=== PATIENT | female | born 1985 | race Caucasian/White ===

== ENCOUNTER 2016-11-11 03:32 | Emergency (ER) | payer SELFPAY ==
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
[2016-11-11] MEDS ORDERED: Sodium Chloride 0.9% 1,000 ML IV ONE (03:55)
[2016-11-11 05:41] VITALS: BP 105/54
--- NOTE | 2016-11-13 10:25 | CT ---
EXAM DATE: 11/11/16 PATIENT'S AGE: 31 Patient: ABHISHEK MEJIAS Facility: [place], [place] Site . Site : 1985 Study: CT Head [id number]/8/2017 4:29:24 AM Ordering Physician: Getachew Brown Final Report: INDICATION: Head trauma TECHNIQUE: CT head without contrast. COMPARISON: None FINDINGS: CSF spaces: Within normal limits for age. Brain parenchyma: The lombardo-white differentiation is normal. No sign of mass, hemorrhage, or midline shift. Skull base and calvarium: The visualized paranasal sinuses and mastoid air cells demonstrate no acute or significant findings. The visualized orbits are grossly unremarkable. No skull fractures. There is a minimally displaced left zygoma fracture. IMPRESSION: No intracranial hemorrhage. Minimally displaced left zygoma fracture. Dictated by Sonia Prater MD @ Nov 11 2016 5:04AM (Electronic Signature) Report Signed by Proxy and Original Signed Document filed in the Medical Record. [facility]
--- NOTE | 2016-11-13 10:26 | CT ---
EXAM DATE: 11/11/16 PATIENT'S AGE: 31 Patient: ABHISHEK MEJIAS Facility: [place], [place] Site . Site : 1985 Study: CT Facial [id number]/8/2017 4:29:51 AM Ordering Physician: Getachew Brown Final Report: INDICATION: Head trauma TECHNIQUE: CT maxillofacial without contrast. COMPARISON: None FINDINGS: Facial bones: There is a minimally displaced left zygoma fracture. The remainder of the osseous structures are intact. Orbits and globes: Unremarkable. Sinuses: No acute or significant findings. Soft tissues: Mild soft tissue swelling overlying the left zygoma. . IMPRESSION: Minimally displaced left zygoma fracture. Dictated by Sonia Prater MD @ Nov 11 2016 5:07AM (Electronic Signature) Report Signed by Proxy and Original Signed Document filed in the Medical Record. [facility]
== END 2016-11-11 05:38 | disposition home or self-care (01) ==
LOC: MW.ED 03:32
DX: S00.83XA Contusion of other part of head, initial encounter (principal); Z79.899 Other long term (current) drug therapy; T74.21XA Adult sexual abuse, confirmed, initial encounter
CPT/HCPCS: 70450; 70450-26; 70486; 70486-26; 99283; 99283-25

== ENCOUNTER 2017-11-08 07:22 | Inpatient (IN) | payer MEDICAID ==
[2017-11-08] MEDS: Lactated Ringers 1,000 ML IV SCH ×3 (07:45→11:27)
[2017-11-08] MEDS ORDERED: Terbutaline 1 MG/ML SDV SUBCUT PRN (07:57)
[2017-11-08] MEDS ORDERED: Water For Irrigation,Sterile 1,000 ML Container IRR PRN (07:59)
[2017-11-08] MEDS ORDERED: Carboprost Tromethamine 250 MCG/1 ML Amp IM PRN (07:59)
[2017-11-08] MEDS ORDERED: Nalbuphine 10 MG/1 ML Vial IVPUSH PRN (07:59)
[2017-11-08] MEDS ORDERED: Sodium Chloride 0.9% 2.5 ML Syringe FLUSH PRN (07:59)
[2017-11-08] MEDS ORDERED: Butorphanol 1 MG/ML SDV IVPUSH PRN (07:59)
[2017-11-08] MEDS ORDERED: Lidocaine 1% 50 ML MDV INJECT PRN (07:59)
[2017-11-08] MEDS ORDERED: Sodium Chloride 0.9% 10 ML Syringe FLUSH PRN (07:59)
[2017-11-08] MEDS ORDERED: Methylergonovine 0.2 MG/1 ML Amp IM PRN (07:59)
[2017-11-08] MEDS ORDERED: Tranexamic Acid 1,000 MG in Sodium Chloride 0.9% 100 ML IV PRN (07:59)
[2017-11-08] MEDS ORDERED: Misoprostol 200 MCG Tab PO PRN (07:59)
[2017-11-08] MEDS ORDERED: Oxytocin/0.9 % Sodium Chloride 30 UNIT/500 ML BAG IV SCH ×2 (08:00)
[2017-11-08] MEDS ORDERED: fentaNYL 100 MCG/2 ML SDV ONE (09:23)
[2017-11-08] MEDS ORDERED: Ropivacaine 0.2% 2 MG/ML 20 ML SDV ONE (09:23)
--- NOTE | 2017-11-08 10:09 | PCM.PREANE ---
Preanesthetic Assessment - Procedure Proposed Procedure: labor epidural - Anesthesia/Transfusion/Family Hx Anesthesia History: Prior Anesthesia Without Reaction (wisdom teeth, epidural x2 ) Other Type of Anesthesia Reaction Comment: high epidural level with previous epidural Family History of Anesthesia Reaction: No Transfusion History: No Prior Transfusion(s) - Review of Systems General: No Symptoms Pulmonary: Other (allergy symptoms, stuffy nose, frequent "bloody" nose) Cardiovascular: No Symptoms Gastrointestinal: No Symptoms Neurological: No Symptoms Other: Reports: Anxiety - Physical Assessment NPO Status Date: 11/08/17 NPO Status Time: 10:08 Height: 1.73 m Weight: 71.668 kg ASA Class: 2 Mental Status: Alert & Oriented x3 Airway Class: Mallampati = 1 Dentition: Reports: Normal Dentition Thyro-Mental Finger Breadths: 3 Mouth Opening Finger Breadths: 3 ROM/Head Extension: Full Lungs: Clear to Auscultation, Normal Respiratory Effort Cardiovascular: Regular Rate, Regular Rhythm - Lab Values: Laboratory Last Values WBC 9.22 K/uL (4.0-11.0) 11/08/17 07:52 RBC 4.66 M/uL (4.30-5.90) 11/08/17 07:52 Hgb 13.7 g/dL (12.0-16.0) 11/08/17 07:52 Hct 40.4 % (36.0-46.0) 11/08/17 07:52 MCV 86.7 fL (80.0-98.0) 04 07:52 MCH 29.4 pg (27.0-32.0) 11/08/17 07:52 MCHC 33.9 g/dL (31.0-37.0) 11/08/17 07:52 RDW Std Deviation 45.3 fl (28.0-62.0) 11/08/17 07:52 RDW Coeff of Armando 15 % (11.0-15.0) 11/08/17 07:52 Plt Count 142 K/uL (150-400) L 11/08/17 07:52 MPV 11.40 fL (7.40-12.00) 11/08/17 07:52 Nucleated RBC % 0.0 /100WBC 11/08/17 07:52 Nucleated RBCs # 0 K/uL 11/08/17 07:52 Blood Type O POSITIVE 04/05/18 07:52 Antibody Screen NEGATIVE 11/08/17 07:52 - Allergies Allergies/Adverse Reactions: Allergies Allergy/AdvReac Type Severity Reaction Status Date / Time seasonal Allergy Other Uncoded 11/08/17 09:56 - Blood Blood Available: Yes Product(s) Available: PRBC - Acknowledgements Anesthesia Type Planned: Epidural Pt an Appropriate Candidate for the Planned Anesthesia: Yes Alternatives and Risks of Anesthesia Discussed w Pt/Guardian: Yes Pt/Guardian Understands and Agrees with Anesthesia Plan: Yes PreAnesthesia Questionnaire [employer] History: Reports: , Other (See Below) Other OB/BYN History: breast augmentation 2012 Neurological History: Reports: Migraines Psychiatric History: Reports: Anxiety, Depression - Past Surgical History HEENT Surgical History: Reports: Other (See Below) Other HEENT Surgeries/Procedures: wisdom teeth removal, mole removal L cheek 3 mos ago - SUBSTANCE USE Smoking Status *Q: Never Smoker Second Hand Smoke Exposure: No Days Per Week of Alcohol Use: 0 Recreational Drug Use History: No - HOME MEDS Home Medications: Home Meds . [No Known Home Meds] 08/22/17 [History] - CURRENT (IN HOUSE) MEDS Current Meds: Current Medications Butorphanol Tartrate (Stadol) 1 mg IVPUSH Q1H PRN PRN Reason: Pain Carboprost Tromethamine (Hemabate Ds) 250 mcg IM ASDIRECTED PRN PRN Reason: Post Hemorrhage Oxytocin/Sodium Chloride (Oxytocin 30 Unit/500 Ml-Ns) 30 unit in 500 mls @ 2 mls/hr IV TITRATE ETTA; Protocol Last Titration: 11/08/17 09:05 Dose: 4 munits/min, 4 mls/hr Lactated Ringer's (Ringers, Lactated) 1,000 mls @ 150 mls/hr IV ASDIRECTED ETTA Last Admin: 11/08/17 09:16 Dose: 999 mls/hr Oxytocin/Sodium Chloride (Oxytocin 30 Unit/500 Ml-Ns) 30 unit in 500 mls @ 500 mls/hr IV TITRATE ETTA Tranexamic Acid 1,000 mg/ (Sodium Chloride) 110 mls @ 660 mls/hr IV ONETIME PRN PRN Reason: Bleeding Lidocaine HCl (Xylocaine 1%) 50 ml INJECT .ONCE PRN PRN Reason: Laceration repair Methylergonovine Maleate (Methergine) 0.2 mg IM ASDIRECTED PRN PRN Reason: Post Hemorrhage Misoprostol (Cytotec) 200 mcg PO .ONCE PRN PRN Reason: Post Hemorrhage Nalbuphine HCl (Nubain) 10 mg IVPUSH Q1H PRN PRN Reason: Pain (severe 7-10) Sodium Chloride (Saline Flush) 10 ml FLUSH ASDIRECTED PRN PRN Reason: Keep Vein Open Sodium Chloride (Saline Flush) 2.5 ml FLUSH ASDIRECTED PRN PRN Reason: Keep Vein Open Sterile Water (Sterile Water For Irrigation) 1,000 ml IRR ASDIRECTED PRN PRN Reason: delivery Terbutaline Sulfate (Brethine) 0.25 mg SUBCUT ASDIRECTED PRN PRN Reason: Tacysystole Discontinued Medications Fentanyl (Sublimaze) Confirm Administered Dose 100 mcg .ROUTE .STK-MED ONE Stop: 11/08/17 09:24 Fentanyl/Bupivacaine HCl (Gorhttwy-Cyurs-Ec 2 Mcg/Ml-0.125%) Confirm Administered Dose 100 mls @ as directed EP .STK-MED ONE Stop: 11/08/17 09:24 Ropivacaine (Naropin 0.2%) Confirm Administered Dose 20 ml .ROUTE .STK-MED ONE Stop: 11/08/17 09:24
--- NOTE | 2017-11-08 10:16 | PCM.PRNOTE ---
- Free Text/Narrative Note: asked to place epidural for labor pain. discussed epidural placement and risks with patient including bleeding, infection, nerve pain, nerve damage and unsuccessful epidural placement. Patient agrees to proceed. sitting up, sterile betadine prep/drape. 1% lidocaine SQ at L4. OS initially found. needle repositioned. #17 touhy advanced with NIKO saline. No heme. no paresthesia. aspiration of fluid shows lightly heme tinged, flushed with normal saline, aspirate now clear. catheter easily placed to 12 cm at skin, approximately 6 cm into space. test dose 3 ml lidocaine with epinepherine 1:200,000. negative reaction. bolus dose of 7 ml 0.2% ropivicaine and fentanyl 100 mcg over 10 min. pain now 2/10 from 6/10 PCEA started at 8ml/hr of 0.125% bupivicaine with fentanyl 100 mcg with bolus option of 5 ml/10 min. hourly rate 32 ml. no complications noted
[2017-11-08] MEDS ORDERED: oxyCODONE 5 MG Tab PO PRN (16:42)
[2017-11-08] MEDS ORDERED: Bisacodyl 10 MG Supp RECTAL PRN (16:42)
[2017-11-08] MEDS ORDERED: Docusate Sodium 100 MG Cap PO PRN (16:42)
[2017-11-08] MEDS ORDERED: Ibuprofen 400 MG Tab PO PRN (16:42)
[2017-11-08] MEDS ORDERED: Benzocaine/Menthol 20%-0.5% Spray 78 GM Cannister TOP PRN (16:42)
[2017-11-08] MEDS ORDERED: Witch Hazel Medicated Pads 40/Jar TOP PRN (16:42)
[2017-11-08] MEDS ORDERED: Acetaminophen 500 MG Tab PO PRN (16:42)
[2017-11-08] MEDS ORDERED: Lanolin 100% Cream 7 GM Tube TOP PRN (16:42)
--- NOTE | 2017-11-08 18:54 | OR ---
SURGEON: Tati Mujica M.D. DATE OF PROCEDURE: 11/08/2017 PREOPERATIVE DIAGNOSES: 1. 39 and 5-week intrauterine . 2. Fairly active induction of labor. POSTOPERATIVE DIAGNOSES: 1. 39 and 5-week intrauterine . 2. Fairly active induction of labor. PROCEDURE PERFORMED: Spontaneous vaginal delivery, intact perineum. ESTIMATED BLOOD LOSS: 350 mL. FINDINGS: Term male, score 9 at 1 minute, 9 at 5 minute. Weight of 4000 g. Spontaneous delivery, intact placenta, 3-vessel cord. DISPOSITION: to nursery, mom in LDRP, stable. PROCEDURE IN DETAIL: Patria is a 32-year-old G3, P2-0-0-2, at 39 and 5 weeks' gestational age, who presents this morning for scheduled elective induction of labor. She is group B beta strep negative. On initial exam, she was found to be 3 cm, 70% effaced, -2 station. She was admitted, routine labs were drawn, IV hydration was initiated. She was initiated on Pitocin induction. Given the fact that she tended to labor fairly rapidly, she elected to undergo a regional anesthesia from epidural first. When she became comfortable with this, underwent amniotomy. Clear fluid was returned. At that time, the patient was found to be 4 cm, 70% effaced, -2 station. She began to progress more rapidly thereafter and shortly after 3 p.m., was found to be complete 100% effaced, +3 station. I was called for delivery. Upon my arrival, the patient was placed in modified dorsal supine position, prepped and draped in the usual aseptic manner. With the next contraction, I was able to push to deliver 's head atraumatically, spontaneously, followed by anterior shoulder, posterior, and remaining body without difficulty. The infant's oropharynx and nares were bulb suctioned. Cord was clamped x2 and cut. was handed off to his mother, attending nursing staff at her side. Cord arterial, cord venous, cord blood samples were obtained. Light suprapubic pressure was applied. The placenta was delivered spontaneously intact. Vigorous fundal uterine massage was then applied while 30 units of Pitocin delivered in 500 mL IV fluid. Upon inspection of cervix, vaginal side, perineum, this was found to be an intact uterus, remained firm. Hemostasis evident. Sponge count is correct. The patient remained in LDRP. in Nursery. YOSSI / ARNIE /[id number]
[2017-11-08] MEDS: Ibuprofen 800 MG Tab PO PRN (20:10)
[2017-11-08] MEDS: Acetaminophen 500 MG Tab PO PRN (23:06)
[2017-11-09] MEDS: Ibuprofen 800 MG Tab PO PRN ×3 (02:25→17:50)
[2017-11-09] MEDS: Acetaminophen 500 MG Tab PO PRN ×2 (07:21→12:32)
--- NOTE | 2017-11-09 07:41 | PCM48HPAN ---
Post Anesthesia Note - EVALUATION WITHIN 48HRS OF ANESTHETIC Vital Signs in Normal Range: Yes Patient Participated in Evaluation: Yes Respiratory Function Stable: Yes Airway Patent: Yes Cardiovascular Function Stable: Yes Hydration Status Stable: Yes Pain Control Satisfactory: Yes Nausea and Vomiting Control Satisfactory: Yes Mental Status Recovered: Yes Resp Rate: 16
--- NOTE | 2017-11-09 08:10 | PCM.PNPP ---
<Mariam Nuñez - Last Filed: 11/09/17 08:08> - General Info Date of Service: 11/09/17 Functional Status: Reports: Pain Controlled, Tolerating Diet, Ambulating, Urinating - Review of Systems General: Denies: Fever, Weakness, Fatigue Pulmonary: Denies: Shortness of Breath, Pleuritic Chest Pain, Cough Cardiovascular: Denies: Chest Pain, Palpitations, Dyspnea on Exertion Gastrointestinal: Denies: Abdominal Pain Genitourinary: Denies: Dysuria Psychiatric: Reports: No Symptoms - General Info Date of Service: 11/09/17 - Patient Data Vital Signs - Most Recent: Last Vital Signs Temp 36.0 C 11/09/17 06:00 Pulse 54 L 11/09/17 06:00 Resp 16 11/09/17 07:41 BP 102/63 11/09/17 06:00 Pulse Ox 97 11/09/17 06:00 Weight - Most Recent: 71.668 kg I&O - Last 24 Hours: Intake & Output 11/08/17 11/09/17 11/09/17 22:59 06:59 14:59 Intake Total 1000 Balance 1000 Lab Results - Last 24 Hours: Laboratory Results - last 24 hr 11/08/17 11/08/17 11/09/17 Range/Units 07:52 07:52 05:25 WBC 9.22 (4.0-11.0) K/uL RBC 4.66 (4.30-5.90) M/uL Hgb 13.7 12.3 (12.0-16.0) g/dL Hct 40.4 36.8 (36.0-46.0) % MCV 86.7 (80.0-98.0) fL MCH 29.4 (27.0-32.0) pg MCHC 33.9 (31.0-37.0) g/dL RDW Std Deviation 45.3 (28.0-62.0) fl RDW Coeff of Armando 15 (11.0-15.0) % Plt Count 142 L (150-400) K/uL MPV 11.40 (7.40-12.00) fL Nucleated RBC % 0.0 /100WBC Nucleated RBCs # 0 K/uL Blood Type O POSITIVE Antibody Screen NEGATIVE Med Orders - Current: Current Medications Acetaminophen (Tylenol Extra Strength) 500 mg PO Q4H PRN PRN Reason: Pain Acetaminophen (Tylenol Extra Strength) 1,000 mg PO Q4H PRN PRN Reason: Pain Last Admin: 11/09/17 07:21 Dose: 1,000 mg Benzocaine/Menthol (Dermoplast Pain Relief 20%-0.5% Cutler) 78 gm TOP ASDIRECTED PRN PRN Reason: Perineal Comfort Measure Last Admin: 11/08/17 20:10 Dose: 1 can Bisacodyl (Dulcolax) 10 mg RECTAL .ONCE PRN PRN Reason: Constipation Carboprost Tromethamine (Hemabate Ds) 250 mcg IM ASDIRECTED PRN PRN Reason: Post Hemorrhage Docusate Sodium (Colace) 100 mg PO BID PRN PRN Reason: Constipation Emollient Ointment (Lansinoh Hpa) 0 gm TOP ASDIRECTED PRN PRN Reason: Sore Nipples Oxytocin/Sodium Chloride (Oxytocin 30 Unit/500 Ml-Ns) 30 unit in 500 mls @ 2 mls/hr IV TITRATE ETTA; Protocol Last Titration: 11/08/17 15:31 Dose: 500 mls/hr Lactated Ringer's (Ringers, Lactated) 1,000 mls @ 150 mls/hr IV ASDIRECTED ETTA Last Admin: 11/08/17 11:27 Dose: 999 mls/hr Oxytocin/Sodium Chloride (Oxytocin 30 Unit/500 Ml-Ns) 30 unit in 500 mls @ 500 mls/hr IV TITRATE ETTA Tranexamic Acid 1,000 mg/ (Sodium Chloride) 110 mls @ 660 mls/hr IV ONETIME PRN PRN Reason: Bleeding Ibuprofen (Motrin) 400 mg PO Q4H PRN PRN Reason: Pain Ibuprofen (Motrin) 800 mg PO Q6H PRN PRN Reason: Pain Last Admin: 11/09/17 02:25 Dose: 800 mg Lidocaine HCl (Xylocaine 1%) 50 ml INJECT .ONCE PRN PRN Reason: Laceration repair Methylergonovine Maleate (Methergine) 0.2 mg IM ASDIRECTED PRN PRN Reason: Post Hemorrhage Oxycodone HCl (Oxycodone) 5 mg PO Q2H PRN PRN Reason: Pain Sodium Chloride (Saline Flush) 10 ml FLUSH ASDIRECTED PRN PRN Reason: Keep Vein Open Sodium Chloride (Saline Flush) 2.5 ml FLUSH ASDIRECTED PRN PRN Reason: Keep Vein Open Witch Martina (Tucks) 1 pad TOP ASDIRECTED PRN PRN Reason: comfort care Discontinued Medications Butorphanol Tartrate (Stadol) 1 mg IVPUSH Q1H PRN PRN Reason: Pain Fentanyl (Sublimaze) Confirm Administered Dose 100 mcg .ROUTE .STK-MED ONE Stop: 11/08/17 09:24 Last Admin: 11/08/17 21:25 Dose: Not Given Fentanyl/Bupivacaine HCl (Uzhgkvop-Dhzkl-Ke 2 Mcg/Ml-0.125%) Confirm Administered Dose 100 mls @ as directed EP .PolyMedix-MED ONE Stop: 11/08/17 09:24 Last Admin: 11/08/17 21:25 Dose: Not Given Misoprostol (Cytotec) 200 mcg PO .ONCE PRN PRN Reason: Post Hemorrhage Nalbuphine HCl (Nubain) 10 mg IVPUSH Q1H PRN PRN Reason: Pain (severe 7-10) Ropivacaine (Naropin 0.2%) Confirm Administered Dose 20 ml .ROUTE .PolyMedix-MED ONE Stop: 11/08/17 09:24 Last Admin: 11/08/17 21:25 Dose: Not Given Sterile Water (Sterile Water For Irrigation) 1,000 ml IRR ASDIRECTED PRN PRN Reason: delivery Last Admin: 11/08/17 15:25 Dose: 1,000 ml Terbutaline Sulfate (Brethine) 0.25 mg SUBCUT ASDIRECTED PRN PRN Reason: Tacysystole - Infant Interaction Disposition, : in Room with Family Interaction: Holding Infant Feeding: Breastfed Infant; Nursed Well Support Person: Mother, Significant Other - Recovery Exam Fundal Tone: Firm Fundal Level: At Umbilicus Fundal Placement: Midline Lochia Amount: Scant Lochia Color: Rubra/Red Perineum Description: Intact, Minimal Bruising/Swelling Episiotomy/Laceration: None Bladder Status: Voiding - Exam General: Alert, Oriented Neck: Supple Lungs: Clear to Auscultation, Normal Respiratory Effort Cardiovascular: Regular Rate, Regular Rhythm GI/Abdominal Exam: Normal Bowel Sounds, Soft, No Distention Extremities: Normal Inspection, Pedal Edema (trace) Skin: Warm, Dry, Intact Psy/Mental Status: Alert - Problem List & Annotations (1) Vaginal delivery SNOMED Code(s): 210972632 Code(s): O80 - ENCOUNTER FOR FULL-TERM UNCOMPLICATED DELIVERY Status: Acute Current Visit: Yes - Problem List Review Problem List Initiated/Reviewed/Updated: Yes - Assessment Assessment:: PPD #1 s/p . Minimal pain and lochia. Breast feeding well. Discharge home today. - Plan Plan:: Discharge instructions reviewed. Nothing in the vagina for 6 weeks. Continue PNV while breast feeding. Can use OTC ibuprofen/tylenol as needed for pain. Instructed patient to call if she develops fever greater than 101 or bleeding through a large pad an hour. F/U with [facility] in 6 weeks. <Tati Mujica - Last Filed: 11/09/17 08:43> - Patient Data Vital Signs - Most Recent: Last Vital Signs Temp 36.0 C 11/09/17 06:00 Pulse 54 L 11/09/17 06:00 Resp 16 11/09/17 07:41 BP 102/63 11/09/17 06:00 Pulse Ox 97 11/09/17 06:00 I&O - Last 24 Hours: Intake & Output 11/08/17 11/09/17 11/09/17 22:59 06:59 14:59 Intake Total 1000 Balance 1000 Lab Results - Last 24 Hours: Laboratory Results - last 24 hr 11/08/17 11/09/17 Range/Units 07:52 05:25 Hgb 12.3 (12.0-16.0) g/dL Hct 36.8 (36.0-46.0) % Blood Type O POSITIVE Antibody Screen NEGATIVE Med Orders - Current: Current Medications Acetaminophen (Tylenol Extra Strength) 500 mg PO Q4H PRN PRN Reason: Pain Acetaminophen (Tylenol Extra Strength) 1,000 mg PO Q4H PRN PRN Reason: Pain Last Admin: 11/09/17 07:21 Dose: 1,000 mg Benzocaine/Menthol (Dermoplast Pain Relief 20%-0.5% Cutler) 78 gm TOP ASDIRECTED PRN PRN Reason: Perineal Comfort Measure Last Admin: 11/08/17 20:10 Dose: 1 can Bisacodyl (Dulcolax) 10 mg RECTAL .ONCE PRN PRN Reason: Constipation Carboprost Tromethamine (Hemabate Ds) 250 mcg IM ASDIRECTED PRN PRN Reason: Post Hemorrhage Docusate Sodium (Colace) 100 mg PO BID PRN PRN Reason: Constipation Emollient Ointment (Lansinoh Hpa) 0 gm TOP ASDIRECTED PRN PRN Reason: Sore Nipples Oxytocin/Sodium Chloride (Oxytocin 30 Unit/500 Ml-Ns) 30 unit in 500 mls @ 2 mls/hr IV TITRATE ETTA; Protocol Last Titration: 11/08/17 15:31 Dose: 500 mls/hr Lactated Ringer's (Ringers, Lactated) 1,000 mls @ 150 mls/hr IV ASDIRECTED ETTA Last Admin: 11/08/17 11:27 Dose: 999 mls/hr Oxytocin/Sodium Chloride (Oxytocin 30 Unit/500 Ml-Ns) 30 unit in 500 mls @ 500 mls/hr IV TITRATE ETTA Tranexamic Acid 1,000 mg/ (Sodium Chloride) 110 mls @ 660 mls/hr IV ONETIME PRN PRN Reason: Bleeding Ibuprofen (Motrin) 400 mg PO Q4H PRN PRN Reason: Pain Ibuprofen (Motrin) 800 mg PO Q6H PRN PRN Reason: Pain Last Admin: 11/09/17 08:32 Dose: 800 mg Lidocaine HCl (Xylocaine 1%) 50 ml INJECT .ONCE PRN PRN Reason: Laceration repair Methylergonovine Maleate (Methergine) 0.2 mg IM ASDIRECTED PRN PRN Reason: Post Hemorrhage Oxycodone HCl (Oxycodone) 5 mg PO Q2H PRN PRN Reason: Pain Sodium Chloride (Saline Flush) 10 ml FLUSH ASDIRECTED PRN PRN Reason: Keep Vein Open Sodium Chloride (Saline Flush) 2.5 ml FLUSH ASDIRECTED PRN PRN Reason: Keep Vein Open Witch Martina (Tucks) 1 pad TOP ASDIRECTED PRN PRN Reason: comfort care Discontinued Medications Butorphanol Tartrate (Stadol) 1 mg IVPUSH Q1H PRN PRN Reason: Pain Fentanyl (Sublimaze) Confirm Administered Dose 100 mcg .ROUTE .K-MED ONE Stop: 11/08/17 09:24 Last Admin: 11/08/17 21:25 Dose: Not Given Fentanyl/Bupivacaine HCl (Sqmxqdit-Bmami-Sy 2 Mcg/Ml-0.125%) Confirm Administered Dose 100 mls @ as directed EP .STK-MED ONE Stop: 11/08/17 09:24 Last Admin: 11/08/17 21:25 Dose: Not Given Misoprostol (Cytotec) 200 mcg PO .ONCE PRN PRN Reason: Post Hemorrhage Nalbuphine HCl (Nubain) 10 mg IVPUSH Q1H PRN PRN Reason: Pain (severe 7-10) Ropivacaine (Naropin 0.2%) Confirm Administered Dose 20 ml .ROUTE .STK-MED ONE Stop: 11/08/17 09:24 Last Admin: 11/08/17 21:25 Dose: Not Given Sterile Water (Sterile Water For Irrigation) 1,000 ml IRR ASDIRECTED PRN PRN Reason: delivery Last Admin: 11/08/17 15:25 Dose: 1,000 ml Terbutaline Sulfate (Brethine) 0.25 mg SUBCUT ASDIRECTED PRN PRN Reason: Tacysystole - My Orders Last 24 Hours: My Active Orders 11/08/17 07:57 Bedrest Bathroom Privileges [RC] ASDIRECTED Communication Order [RC] ASDIRECTED Communication Order [RC] ASDIRECTED Communication Order [RC] ASDIRECTED Notify Provider [RC] PRN Notify Provider [RC] PRN Notify Provider [RC] STAT Oxygen Therapy [RC] ASDIRECTED Vital Signs [RC] PER UNIT ROUTINE 11/08/17 07:59 Patient Status [ADT] Routine Heart Tones [RC] CONTINUOUS Non Stress Test [RC] PER UNIT ROUTINE Notify Provider [RC] PRN Vaginal Exam [RC] PRN Vital Signs [RC] PER UNIT ROUTINE Carboprost Tromethamine [Hemabate DS] 250 mcg IM ASDIRECTED PRN Lidocaine 1% [Xylocaine 1%] 50 ml INJECT .ONCE PRN Methylergonovine [Methergine] 0.2 mg IM ASDIRECTED PRN Sodium Chloride 0.9% [Saline Flush] 10 ml FLUSH ASDIRECTED PRN Sodium Chloride 0.9% [Saline Flush] 2.5 ml FLUSH ASDIRECTED PRN Tranexamic Acid [Cyklokapron] 1,000 mg Sodium Chloride 0.9% [Normal Saline] 100 ml IV ONETIME Peripheral IV Insertion Adult [OM.PC] Routine Resuscitation Status Routine 11/08/17 08:00 Lactated Ringers [Ringers, Lactated] 1,000 ml IV ASDIRECTED Oxytocin/0.9 % Sodium Chloride [Oxytocin 30 Unit/500 ML-NS] 30 unit in 500 ml IV TITRATE Oxytocin/0.9 % Sodium Chloride [Oxytocin 30 Unit/500 ML-NS] 30 unit in 500 ml IV TITRATE Medication Administration Instruction [OM.PC] Q3H 11/08/17 16:42 Patient Status [ADT] Routine May Shower [RC] ASDIRECTED Up ad Meagan [RC] ASDIRECTED Vital Signs [RC] PER UNIT ROUTINE Acetaminophen [Tylenol Extra Strength] 1,000 mg PO Q4H PRN Acetaminophen [Tylenol Extra Strength] 500 mg PO Q4H PRN Benzocaine/Menthol [Dermoplast Pain Relief 20%-0.5% Cutler] 78 gm TOP ASDIRECTED PRN Bisacodyl [Dulcolax] 10 mg RECTAL .ONCE PRN Docusate Sodium [Colace] 100 mg PO BID PRN Ibuprofen [Motrin] 400 mg PO Q4H PRN Ibuprofen [Motrin] 800 mg PO Q6H PRN Lanolin [Lansinoh HPA] See Dose Instructions TOP ASDIRECTED PRN Witch Martina [Tucks] 1 pad TOP ASDIRECTED PRN oxyCODONE 5 mg PO Q2H PRN Assess Lochia [WOMSER] Per Unit Routine Assess Uterine Involution [WOMSER] Per Unit Routine Peripheral IV Discontinue [OM.PC] Routine 11/08/17 16:43 Perineal Care [OM.PC] Per Unit Routine Sitz Bath [OM.PC] Per Unit Routine 11/08/17 Dinner Regular Diet [DIET] - Plan Plan:: Patient seen examined, agree with above
[2017-11-09 16:23] VITALS: BP 94/45
== END 2017-11-09 19:15 | disposition home or self-care (01) | DRG 775 ==
LOC: MW.OBCHECK 07:22 → MW.OB 07:25 → MW.OBCHECK 07:59 → OBSVTOIN 16:42
PROVIDERS: ADMIT Obstetrics & Gynecology; ATTEND Obstetrics & Gynecology
PROC: 10E0XZZ Delivery of Products of Conception, External Approach (ICD-10-PCS; principal; 2017-11-08)
PROC: 10907ZC Drainage of Amniotic Fluid, Therapeutic from Products of Conception, Via Natural or Artificial Opening (ICD-10-PCS; 2017-11-08)
PROC: 3E033VJ Introduction of Other Hormone into Peripheral Vein, Percutaneous Approach (ICD-10-PCS; 2017-11-08)
DX: O80 Encounter for full-term uncomplicated delivery (principal); Z37.0 Single live birth; Z3A.39 39 weeks gestation of pregnancy
CPT/HCPCS: 36415; 59025; 59409; 85014; 85018; 85027; 86850; 86900; 86901; A9270-GY; J2590; J7120

== ENCOUNTER 2019-04-09 13:22 | Emergency (ER) | payer SELFPAY ==
--- NOTE | 2019-04-09 13:35 | EDM.PDOC ---
ED HPI GENERAL MEDICAL PROBLEM - General Chief Complaint: ENT Problem Stated Complaint: MOUTH INFECTION Time Seen by Provider: 04/09/19 13:24 Source of Information: Reports: Patient History Limitations: Reports: No Limitations - History of Present Illness INITIAL COMMENTS - FREE TEXT/NARRATIVE: HISTORY AND PHYSICAL: History of present illness: Patient is a 33-year-old female who presents to the emergency room today with complaints of right sided facial pain after falling yesterday evening. She states that she had missed stepped while going up stairs and the right side of her face and hit the railing. She does have some soft tissue swelling along the right jaw/cheekbone area. She denies having any loss of consciousness. Does have some tenderness in the cervical spine along with a generalized headache. Patient denies any fever, chills, headache, change in vision, syncope or near syncope. Denies any chest pain, back pain, shortness of breath or cough. Denies any GI or symptoms. Patient has been eating and drinking appropriately. Review of systems: As per history of present illness and below otherwise all systems reviewed and negative. Past medical history: As per history of present illness and as reviewed below otherwise noncontributory. Surgical history: As per history of present illness and as reviewed below otherwise noncontributory. Social history: See social history for further information Family history: As per history of present illness and as reviewed below otherwise noncontributory. Physical exam: General: Well developed and well nourished 33-year-old female. Alert and oriented. Nontoxic appearing and in no acute distress. HEENT: Soft tissue swelling and bruising noted along the right lower jaw into the cheek bone with early bruising, tenderness at this site. Normocephalic, pupils equal and reactive bilaterally, negative for conjunctival pallor or scleral icterus, mucous membranes moist, small laceration noted in the mouth right cheek, abrasion noted to external cheek. TMs normal bilaterally, throat clear, neck supple, nontender, trachea midline. No drooling or trismus noted. No meningeal signs. No hot potato voice noted. Lungs: Clear to auscultation, breath sounds equal bilaterally, chest nontender. Heart: S1S2, regular rate and rhythm without overt murmur Abdomen: Soft, nondistended, nontender. Negative for masses or hepatosplenomegaly. Negative for costovertebral tenderness. Pelvis: Stable nontender. Extremities: Atraumatic, moves all extremities per self without difficulty or deficits, negative for cords or calf pain. Neurovascular unremarkable. Neuro: Awake, alert, oriented. Cranial nerves II through XII unremarkable. Cerebellum unremarkable. Motor and sensory unremarkable throughout. Exam nonfocal. Notes: Wound care provided. Imagining is unremarkable. Due to the localized swelling and redness, will cover with Keflex. Supportive care measures were reviewed and discussed. Voices understanding and is agreeable to plan of care. Denies any further questions or concerns at this time. Diagnostics: Head/C-spine/Maxilofacial CT Therapeutics: None Prescription: Tramadol Keflex Impression: Head Injury Localized skin infection Plan: 1. Jaw rest, apply ice and supportive care such as Tylenol and or ibuprofen over the next several days. 2. Please follow-up with your primary care provider as we discussed. 3. Return to the ED as needed and as discussed. Definitive disposition and diagnosis as appropriate pending reevaluation and review of above. Right Cheek Pain Score (Numeric/FACES): 10 - Related Data Allergies Allergy/AdvReac Type Severity Reaction Status Date / Time seasonal Allergy Other Uncoded 04/09/19 13:41 Home Meds: Home Meds Acetaminophen [Tylenol Extra Strength] 1 tab PO Q6H PRN 11/08/17 [History] Calcium Carbonate [Tums Extra Strength] 1 tab PO DAILY PRN 11/08/17 [History] Fluticasone Propionate [Flonase] 50 mcg LELAND DAILY PRN 11/08/17 [History] Vit Calc,Iron,Folic [ Vitamins] 1 tab PO DAILY 11/08/17 [ History] Cephalexin [Keflex] 500 mg PO BID 5 Days #10 capsule 04/09/19 [Rx] traMADol [Ultram] 50 mg PO Q4H PRN #15 tab 04/09/19 [Rx] Past Medical History [employer] History: Reports: , Other (See Below) Other [employer] History: breast augmentation 2012 Neurological History: Reports: Migraines Psychiatric History: Reports: Anxiety, Depression - Past Surgical History HEENT Surgical History: Reports: Other (See Below) Other HEENT Surgeries/Procedures: wisdom teeth removal, mole removal L cheek 3 mos ago Social & Family History - Family History Family Medical History: Noncontributory - Caffeine Use Caffeine Use: Reports: None ED ROS ENT - Review of Systems Review Of Systems: ROS reveals no pertinent complaints other than HPI. ED EXAM, ENT - Physical Exam Exam: See Below (See dictation) Course - Vital Signs Last Recorded V/S: Last Vital Signs Temp 97.2 F 04/09/19 13:42 Pulse 89 04/09/19 13:42 Resp 16 04/09/19 13:42 BP 136/66 04/09/19 13:42 Pulse Ox 99 04/09/19 13:42 Departure - Departure Time of Disposition: 14:50 Disposition: Home, Self-Care 01 Clinical Impression: Localized infection of skin Head injury Qualifiers: Encounter type: initial encounter Qualified Code(s): S09.90XA - Unspecified injury of head, initial encounter - Discharge Information Prescriptions: Cephalexin [Keflex] 500 mg PO BID 5 Days #10 capsule traMADol [Ultram] 50 mg PO Q4H PRN #15 tab PRN Reason: Pain Instructions: Head Injury, Adult Referrals: PCP,Unknown [Primary Care Provider] - Forms: ED Department Discharge Additional Instructions: The following information is given to patients seen in the emergency department who are being discharged to home. This information is to outline your options for follow-up care. We provide all patients seen in our emergency department with a follow-up referral. The need for follow-up, as well as the timing and circumstances, are variable depending upon the specifics of your emergency department visit. If you don't have a primary care physician on staff, we will provide you with a referral. We always advise you to contact your personal physician following an emergency department visit to inform them of the circumstance of the visit and for follow-up with them and/or the need for any referrals to a consulting specialist. The emergency department will also refer you to a specialist when appropriate. This referral assures that you have the opportunity for follow-up care with a specialist. All of these measure are taken in an effort to provide you with optimal care, which includes your follow-up. Under all circumstances we always encourage you to contact your private physician who remains a resource for coordinating your care. When calling for follow-up care, please make the office aware that this follow-up is from your recent emergency room visit. If for any reason you are refused follow-up, please contact the [facility] Emergency Department at and asked to speak to the emergency department charge nurse. ZULEIMA [facility] [address] [place] [address] [facility] [address] [place] [id number] 1. Jaw rest, apply ice and supportive care such as Tylenol and or ibuprofen over the next several days. 2. Please follow-up with your primary care provider as we discussed. 3. Return to the ED as needed and as discussed.
[2019-04-09 13:46] VITALS: BP 136/66; PULSE 89
--- NOTE | 2019-04-09 14:39 | CT ---
Head CT Technique: Multiple axial sections through the brain were obtained. Intravenous contrast was not utilized. Comparison: No prior intracranial imaging is available. Findings: Ventricles along with basal cisterns and sulci over the convexities are within normal limits for the patient's age. No abnormal parenchymal densities are seen. No evidence of intracranial hemorrhage. No midline shift or mass effect is seen. Bone window settings were reviewed which shows the visualized paranasal sinuses to appear without acute abnormality. Mastoid sinuses are clear. No acute calvarial abnormality is appreciated. Impression: 1. Nothing acute is appreciated on noncontrast head CT exam. Diagnostic code #1 MTDD
--- NOTE | 2019-04-09 14:40 | CT ---
CT cervical spine Technique: Multiple axial sections through the cervical spine were obtained. Study was obtained from above C1 inferiorly to the mid T3 level. Reconstructed sagittal and coronal images were reviewed. Findings: Vertebral body heights and disc spaces are maintained. No fracture is identified. Small portion of the visualized lung apices are clear. No abnormal subluxation is seen. No traumatic disc herniation is seen. Impression: 1. Nothing acute is seen on CT study of the cervical spine. Diagnostic code #1 MTDD
--- NOTE | 2019-04-09 14:41 | CT ---
CT facial bones Technique: Multiple axial sections through the facial bones were obtained. Reconstructed coronal and sagittal images were reviewed. Findings: Right and left globes are symmetric. Extraocular muscles and optic nerves appear symmetric. No acute paranasal sinus disease is seen. No facial bone fracture is seen. Impression: 1. Nothing acute is appreciated on CT study of the facial bones. Diagnostic code #1 MTDD
== END 2019-04-09 14:55 | disposition home or self-care (01) ==
LOC: MW.ED 13:22
DX: S09.90XA Unspecified injury of head, initial encounter (principal); L08.9 Local infection of the skin and subcutaneous tissue, unspecified; Z88.8 Allergy status to other drugs, medicaments and biological substances; Z79.899 Other long term (current) drug therapy; W10.8XXA Fall (on) (from) other stairs and steps, initial encounter; W22.8XXA Striking against or struck by other objects, initial encounter
CPT/HCPCS: 70450; 70450-26; 70486; 70486-26; 72125; 72125-26; 99283; 99283-25